=== PATIENT | male | born 1965 | race Caucasian/White ===

== ENCOUNTER 2016-07-03 16:10 | Emergency (ER) | payer OTHER, BC ==
[2016-07-03 16:33] LABS: BASOPHIL COUNT 0.1 K/uL (0-0.1); EOSINOPHIL (%) 1.5 % (0-5); EOSINOPHIL COUNT 0.2 K/uL (0-0.3); HEMATOCRIT 46.6 % (38.0-50.0); IMMATURE GRANULOCYTE (%) 0.5 % (0.0-0.7); IMMATURE GRANULOCYTE COUNT 0.1 K/uL; INSTRUMENT ABS NEUTROPHIL CT 6.6 K/uL; MCH 29.9 PG (29.0-34.0); MCHC 34.5 G/DL (30.0-36.0); MCV 86.6 FL (86-99); MEAN PLAT.VOLUME 10.2 uM^3 (9.0-12.4); MONOCYTE (%) 8.4 % (3-12); MONOCYTE COUNT 0.8 K/uL (0-0.8); NEUTROPHIL (%) 67.9 % (45-76); NEUTROPHIL COUNT 6.6 K/uL (1.8-6.4); PLATELET COUNT 266 K/uL (156-360); RBC DIS.WIDTH-CV 12.2 % (11.8-14.6); RBC DIS.WIDTH-SD 38.9 % (39-53); RED BLOOD COUNT 5.38 M/uL (4.00-5.50); WHITE BLOOD COUNT 9.8 K/uL (4.1-10.2)
[2016-07-03 16:42] LABS: AMYLASE 38 IU/L (1-118); CHLORIDE 99 mEq/L (99-109); POTASSIUM 4.4 mEq/L (3.7-5.4); SODIUM 134 mEq/L (136-147)
[2016-07-03 16:44] LABS: GLUCOSE 93 mg/dL (70-99)
[2016-07-03 16:45] LABS: ANION GAP 9 MEQ/L (2-14)
[2016-07-03 16:47] LABS: SERUM ETHYL ALCOHOL < 10 mg/dL
[2016-07-03 16:48] LABS: GFR ESTIMATE (CALCULATED) > 59 mL/min/
[2016-07-03 16:49] LABS: UREA NITROGEN (BUN) 17 mg/dL (9-23)
[2016-07-03 16:51] LABS: LIPASE 22 U/L (1.0-51.0)
[2016-07-03] MEDS ORDERED: FLEXERIL10 MG PO (17:26)
[2016-07-03] MEDS ORDERED: MOTRIN600 MG PO (17:26)
== END 2016-07-03 17:53 | disposition home or self-care (01) ==
LOC: TRA 16:10
PROVIDERS: Emergency Medicine
DX: S39.012A Strain of muscle, fascia and tendon of lower back, initial encounter (principal); V59.40XA Driver of pick-up truck or van injured in collision with unspecified motor vehicles in traffic accident, initial encounter; W17.89XA Other fall from one level to another, initial encounter; Y92.410 Unspecified street and highway as the place of occurrence of the external cause; I10 Essential (primary) hypertension
CPT/HCPCS: 71260; 72125; 72129; 72132; 80048; 81003; 82150; 83690; 85025; 86900; 86901; 99281; 99284; G0480